=== PATIENT | female | born 1980 | race Two or more races ===

== ENCOUNTER 2020-11-07 08:58 | Emergency (ER) | payer MEDICAID, OTHER ==
[~2020-11-07] VITALS: Ht 165.1 cm; Wt 79.4 kg
[2020-11-07 09:05] VITALS: BP 121/78
== END 2020-11-07 10:06 | disposition home or self-care (01) ==
LOC: EDBD 08:58 → ER 08:58
DX: Z34.90 Encounter for supervision of normal pregnancy, unspecified, unspecified trimester (principal)